=== PATIENT | male | born 1950 | race Caucasian/White ===

== ENCOUNTER 2022-02-23 10:12 | Outpatient (REF) | payer MEDICARE, SELFPAY ==
[2022-02-23 14:13] LABS: MANUAL DIFF FLAG NO
[2022-02-23 14:24] LABS: Basophils Percent Auto 0.6 % (0-2); Eosinophils Percent Auto 0.4 % (0-4); Hematocrit 52.6 % (42.0-52.0); Hemoglobin 17.4 g/dl (14.0-18.0); Imm Gran Abs Auto 0.02 X10*3/uL (0.00-0.03); Imm Gran Pct Auto 0.4 % (0.0-0.4); Lymphocytes Percent Auto 19.2 % (20-40); Mean Corpuscular HGB Conc 33.1 g/dl (31.0-36.0); Mean Corpuscular Hemoglobin 32.8 pg (27.0-33.0); Mean Corpuscular Volume 99.2 fL (80.0-98.0); Mean Platelet Volume 9.7 fL (9.4-12.4); Monocytes Absolute Auto 0.4 X10*3/uL (0.1-1.2); Monocytes Percent Auto 8.7 % (2-11); Neutrophils Absolute Auto 3.5 x10*3/uL (2.0-8.3); Neutrophils Percent Auto 70.7 % (45-73); Platelet Count 199 X10*3/uL (160-400)
[2022-02-23 15:03] LABS: Alanine Aminotransferase 28 U/L (0-40); Albumin Level 4.4 g/dL (3.5-5.0); Alkaline Phosphatase 64 U/L (39-117); Anion Gap 21 (12-20); Aspartate Amino Transferase 30 U/L (5-37); Bilirubin Total 0.6 mg/dL (0.0-1.0); Blood Urea Nitrogen 14 mg/dL (9-16); Calcium 9.3 mg/dL (8.4-10.2); Carbon Dioxide 23 mmol/L (22-29); Chloride 97 mmol/L (96-108); Cholesterol 200 mg/dL; Estimated Glomerular Filt Rate 54; Glucose Fasting 111 mg/dL (60-99); HDL Cholesterol 40 mg/dL; LDL Cholesterol Calculated 131 mg/dl; Potassium 3.9 mmol/L (3.3-5.1); Sodium 137 mmol/L (135-145); Total Protein 7.3 g/dL (6.5-8.0); Triglycerides 146 mg/dL
[2022-02-23 15:24] LABS: Prostate Specific Antigen Scr 1.87 ng/mL (<0.05-4.0); TSH reflex Free T4 2.63 uIU/mL (0.32-4.0)
== END 2022-02-23 10:13 | disposition home or self-care (01) ==
LOC: HO.WFDLDS 10:12
PROVIDERS: Visit Provider Family Medicine
DX: Z01.818 Encounter for other preprocedural examination (principal); Z12.5 Encounter for screening for malignant neoplasm of prostate; J44.9 Chronic obstructive pulmonary disease, unspecified
CPT/HCPCS: 36415; 80053; 80061; 84153; 84443; 85025; 99202

== ENCOUNTER 2022-03-31 10:27 | Outpatient (REF) | payer MEDICARE, SELFPAY ==
[2022-03-31 14:02] LABS: MANUAL DIFF FLAG NO
[2022-03-31 14:24] LABS: Basophils Absolute Auto 0.1 X10*3/uL (0.0-0.2); Basophils Percent Auto 0.7 % (0-2); Eosinophils Absolute Auto 0.2 X10*3/uL (0.0-0.4); Eosinophils Percent Auto 2.3 % (0-4); Hematocrit 47.7 % (42.0-52.0); Imm Gran Abs Auto 0.03 X10*3/uL (0.00-0.03); Imm Gran Pct Auto 0.4 % (0.0-0.4); Lymphocytes Absolute Auto 2.2 X10*3/uL (1.2-4.9); Lymphocytes Percent Auto 30.7 % (20-40); Mean Corpuscular HGB Conc 33.5 g/dl (31.0-36.0); Mean Corpuscular Volume 101.3 fL (80.0-98.0); Mean Platelet Volume 9.9 fL (9.4-12.4); Monocytes Absolute Auto 0.5 X10*3/uL (0.1-1.2); Monocytes Percent Auto 7.1 % (2-11); Neutrophils Absolute Auto 4.1 x10*3/uL (2.0-8.3); Neutrophils Percent Auto 58.8 % (45-73); Platelet Count 247 X10*3/uL (160-400); Red Blood Count 4.71 X10*6/uL (4.60-5.80); Red Cell Distribution Width 13.2 % (11.0-16.0)
[2022-03-31 14:26] LABS: Estimated Average Glucose 103 mg/dL; Hemoglobin A1c % 5.2 %
[2022-03-31 14:39] LABS: Anion Gap 16 (12-20); Blood Urea Nitrogen 12 mg/dL (9-16); Calcium 9.2 mg/dL (8.4-10.2); Carbon Dioxide 28 mmol/L (22-29); Chloride 102 mmol/L (96-108); Estimated Glomerular Filt Rate > 60; Glucose Fasting 105 mg/dL (60-99); Potassium 4.1 mmol/L (3.3-5.1); Sodium 142 mmol/L (135-145)
== END 2022-03-31 10:28 | disposition home or self-care (01) ==
LOC: HO.WFDLDS 10:27
PROVIDERS: Visit Provider Family Medicine
DX: Z00.00 Encounter for general adult medical examination without abnormal findings (principal); R73.01 Impaired fasting glucose
CPT/HCPCS: 36415; 80048; 83036; 85025

== ENCOUNTER 2022-12-01 13:38 | Day surgery (SDC) | payer MEDICARE, SELFPAY ==
[2022-12-01 12:52] VITALS: BMI 34.6
--- NOTE | 2022-12-01 13:49 | HO.ANESPROP2 ---
[facility] Active Problems Active Problems: All Active Problems (Updated 10/03/22 @ 10:01 by Pedro Deluca MD) Overgrown nail (Acute) Elevated LDL cholesterol level (Acute) Elevated fasting glucose (Acute) History of smoking (Acute) COPD (chronic obstructive pulmonary disease) (Acute) Screening for colon cancer (Acute) Screening for prostate cancer (Acute) Adult general medical exam (Acute) Seborrheic keratosis (Acute) Vision changes (Acute) Restless leg syndrome (Acute) Difficulty sleeping (Acute) Laboratory exam ordered as part of routine general medical examination (Acute) Past Medical History Medical History Hernia Surgical History Surgical History History of foot surgery Hx of colonoscopy Hx of hernia repair Hx of prostatectomy Hx of skin graft Social History Social History Housing: Apartment Patient Tobacco Use Status: Former Tobacco user Tobacco use type: Cigarette Cigarette Packs Per Day: 1 e-Cigarette/Vaping Use: Never Used Second Hand Smoke Exposure: No Use of substances other than those prescribed or required for medical reasons: No Are you DNR?: No Advance Directives: No Advance Directives Information Provided: Yes Recently lost weight without trying: No Nutrition Risks: No Nutritional Risk service: No Current occupational status: retired Current occupational exposures/hazards: No Cognitive needs: No Hearing needs: No Vision needs: No Meds Allergies Allergy/AdvReac Type Severity Reaction Status Date / Time No Known Allergies Allergy Verified 10/03/22 09:39 Home Medications Medication Instructions Recorded Confirmed Last Taken Type acetaminophen 500 mg capsule 500 mg PO QID PRN 10/03/22 Unknown History melatonin 10 mg capsule 10 mg PO BEDTIME PRN 10/03/22 Unknown History Exam Exam Date and Time: December 01, 2022 134 Height,Weight and Vital Signs: Height 6 ft Weight 115.666 kg
--- NOTE | 2022-12-01 13:50 | HO.ANESPROP2 ---
HPI - Anesthesia Eval Consult details Narrative: for colonoscopy PMFSH Active Problems Active Problems: All Active Problems (Updated 10/03/22 @ 10:01 by Pedro Deluca MD) Overgrown nail (Acute) Elevated LDL cholesterol level (Acute) Elevated fasting glucose (Acute) History of smoking (Acute) COPD (chronic obstructive pulmonary disease) (Acute) Screening for colon cancer (Acute) Screening for prostate cancer (Acute) Adult general medical exam (Acute) Seborrheic keratosis (Acute) Vision changes (Acute) Restless leg syndrome (Acute) Difficulty sleeping (Acute) Laboratory exam ordered as part of routine general medical examination (Acute) Past Medical History Medical History Hernia Family History Family history of problems with anesthesia: No Surgical History Surgical History History of foot surgery Hx of colonoscopy Hx of hernia repair Hx of prostatectomy Hx of skin graft History of Problems with Anesthesia: No Social History Social History Housing: Apartment Patient Tobacco Use Status: Former Tobacco user Tobacco use type: Cigarette Cigarette Packs Per Day: 1 e-Cigarette/Vaping Use: Never Used Second Hand Smoke Exposure: No Use of substances other than those prescribed or required for medical reasons: No Are you DNR?: No Advance Directives: No Advance Directives Information Provided: Yes Recently lost weight without trying: No Nutrition Risks: No Nutritional Risk service: No Current occupational status: retired Current occupational exposures/hazards: No Cognitive needs: No Hearing needs: No Vision needs: No Meds Allergies Allergy/AdvReac Type Severity Reaction Status Date / Time No Known Allergies Allergy Verified 10/03/22 09:39 Home Medications Medication Instructions Recorded Confirmed Last Taken Type acetaminophen 500 mg capsule 500 mg PO QID PRN 10/03/22 Unknown History melatonin 10 mg capsule 10 mg PO BEDTIME PRN 10/03/22 Unknown History Exam Exam Date and Time: December 01, 2022 1350 Height,Weight and Vital Signs: Height 6 ft Weight 115.666 kg Airway Mallampati Class: II TM Dist: >3cm Neck ROM: Full Heart: rrr Lungs: cta Assessment and Plan Assessment Anesthesia Assessment: Anesthesia Plan Discussed and Chart Reviewed Final Anesthetic Review Family History of Problems with Anesthesia: No History of Problems with Anesthesia: No ASA Class: III Final Preanesthetic Review: No Changes in Pt Med Stat, Meds/Allgs Chart Reviewed, Consent Obtained/Reviewed and Anes Risks/Benef Reviewed Patient Risk: Low Procedure Risk: Low Anesthetic Plan Anesthetic Plan: MAC: Disposition: Standard PACU
[2022-12-01 13:53] VITALS: BP 147/89; PULSE 96; RESP 18; TEMP 36.1; O2SAT 94
--- NOTE | 2022-12-01 13:55 | MHC.SHP ---
Pre-Procedural Eval Section A Date of Service: 12/01/22 Section B Chief Complaint: screening Relevant Family History (Specify if Yes): No Relevant Social History: None Present Medications: see Short Stay Collaborative assessment Medical History: Significant History (hernia) History of Previous Operations: Relevant previous surgery/procedure and date(s) (History of foot surgery Hx of colonoscopy Hx of hernia repair Hx of prostatectomy Hx of skin graft) Allergies: Allergies Allergy/AdvReac Type Severity Reaction Status Date / Time No Known Allergies Allergy Verified 10/03/22 09:39 Review of Systems Sugical H&P ROS: Negative: Constitution, Cardiovascular, Respiratory, Neurological, Psychiatric, Hem-Onc, Allergic/Immunologic, Gastrointestinal, Genitourinary, Musculoskeletal, Integumentary, Endocrine and Eyes/Ears/Nose/Throat Exam Surgical H&P Exam: Normal: HEENT, Normal: Heart, Normal: Lungs, Normal: Extremities, Normal: Abdomen, Normal: Skin and Normal: Neurological Plan Diagnosis/Plan: Unchanged I have reviewed the history and physical and performed a pertinent physical examination on my patient. No changes have occurred unless specified. Time Spent With Patient Time: Total time managing care of this patient today ____ minutes.
--- NOTE | 2022-12-01 14:32 | W.PM.OPN ---
Operative Note Operative Note Date of Service: 12/01/22 Narrative: Operative Information Procedure Description: Colonoscopy Indication: screening Anesthesia: MAC COLONOSCOPY Instrument: Olympus variable stiffness pediatric scope 190L Colonoscopy Monitoring: Vital signs and clinical assessment, continuous EKG monitoring, Pulse oximetry, Carbon Dioxide monitoring and blood pressure monitoring were done throughout the procedure. Colon withdrawal time was 10 minutes. Procedure: The patient was placed in the left lateral decubitis position and pre-procedure medications were administered. After a digital rectal examination of the ano-rectum, the video colonoscope was inserted into the rectum and advanced through the colon to the cecum/TI. The colonoscope was slowly withdrawn in a retrograde panoramic fashion and the colon mucosa was carefully examined including a retroflexed view of the rectum. Findings and interventions are described below. Procedure Difficulty: easy Findings: Terminal Ileum-normal Cecum: 4-5 mm sessile polyp removed with cold forceps Ascending Colon: normal Transverse Colon -normal Descending Colon:normal Sigmoid Colon: mild diverticulosis Rectum: Retroflexion with small internal hemorrhoids, grade I, 8-10 mm sessile polyp removed with cold snare Anorectum - normal Colon preparation: [place] Bowel Preparation Scale Right colon; 2 Transverse colon: 3 Left colon; 3 (0 = Unprepared colon segment with mucosa not seen due to solid stool that cannot be cleared. 1 = Portion of mucosa of the colon segment seen, but other areas of the colon segment not well seen due to staining, residual stool and/or opaque liquid. 2 = Minor amount of residual staining, small fragments of stool and/or opaque liquid, but mucosa of colon segment seen well. 3 = Entire mucosa of colon segment seen well with no residual staining, small fragments of stool or opaque liquid) Impression and Post Procedure Diagnosis: polyps internal hemorrhoids diverticular disease Plan: High fiber diet leaflet Avoid straining at stool, epsom salts and sitz bath, anusol supps or cream Repeat Colonoscopy in 5 years if adenomatous. 10 yrs if benign or earlier if clinically indicated Above findings were reviewed with the patient and relevant handouts were provided if indicated.
[2022-12-01 14:36] VITALS: BP 116/68; PULSE 61; RESP 16; TEMP 36.4; O2SAT 98
[2022-12-01 14:51] VITALS: BP 114/68; PULSE 63; RESP 16; O2SAT 96
[2022-12-01 15:06] VITALS: BP 129/82; PULSE 61; RESP 16; TEMP 36.1; O2SAT 97
== END 2022-12-01 15:39 | disposition home or self-care (01) ==
PROVIDERS: PCP Family Medicine; Visit Provider Internal Medicine Gastroenterology
PROC: 0DJD8ZZ Inspection of Lower Intestinal Tract, Via Natural or Artificial Opening Endoscopic (ICD-10-PCS; CPT 45378; principal; 2022-12-01 14:20)
DX: Z12.11 Encounter for screening for malignant neoplasm of colon (principal); D12.0 Benign neoplasm of cecum; K62.1 Rectal polyp; K57.30 Diverticulosis of large intestine without perforation or abscess without bleeding; K64.0 First degree hemorrhoids; J44.9 Chronic obstructive pulmonary disease, unspecified
CPT/HCPCS: 45385; 45380; 88305

== ENCOUNTER → 2022-12-20 10:59 | Outpatient (BNVA) | payer MEDICARE, SELFPAY | PROVIDERS: PCP Family Medicine; Visit Provider Physician Assistant | DX: Z00.00 Encounter for general adult medical examination without abnormal findings (principal); R73.01 Impaired fasting glucose; I10 Essential (primary) hypertension; Z13.220 Encounter for screening for lipoid disorders; K57.30 Diverticulosis of large intestine without perforation or abscess without bleeding; K64.9 Unspecified hemorrhoids; D12.6 Benign neoplasm of colon, unspecified | CPT/HCPCS: 99212 ==

== ENCOUNTER → 2022-12-20 10:59 | Outpatient (AMB) | payer MEDICARE, SELFPAY ==
--- NOTE | 2022-12-20 10:59 | MHC.OFFVIS ---
Intake Vital Signs 12/20/22 11:02 Height 5 ft 9 in Weight 252 lb BMI 37.2 BP 116/72 Blood Pressure Location Lt brachial Position Sitting Pulse 74 Intake Visit Reasons: S/p Warriors Mark; Qiu Intake Note: Patient follow up for Colonoscopy results. Patient denies any GI issues. Data Operations Leader Required: No Accompanied by: Self / Same As Patient Allergies No Known Allergies Allergy (Verified 12/20/22 11:00) Medication List - Last Reconciled 12/20/22 by Lindsay Bose PA-C acetaminophen 500 mg PO QID PRN gabapentin 300 mg PO BEDTIME 30 days melatonin 10 mg PO BEDTIME PRN HPI HPI Comments History of Present Illness Details A 72 y/o male f/u after colonoscopy- for result- he tolerated well reviewed procedure report and pathology He is currently fasting for blood work- says hes pre diabetic- feels well [facility] Medical History (Updated 12/20/22 @ 11:02 by Lindsay Boes PA-C) Hernia Surgical History History of foot surgery Hx of colonoscopy Hx of hernia repair Hx of prostatectomy Hx of skin graft Social History Housing: Apartment Patient Tobacco Use Status: Former Tobacco user Tobacco use type: Cigarette Cigarette Packs Per Day: 1 e-Cigarette/Vaping Use: Never Used Second Hand Smoke Exposure: No service: No Current occupational status: retired Current occupational exposures/hazards: No Cognitive needs: No Hearing needs: No Vision needs: No Review of Systems Const All systems reviewed & are unremarkable except as noted in HPI and below Card Denies chest pain and Denies dyspnea Resp Denies dyspnea GI Reports abdominal pain Physical Exam Const General: cooperative, healthy appearing and comfortable Orientation/consciousness: patient oriented x3 Limitations: no limitations Eyes Sclerae: sclerae normal Resp Effort & Inspection: normal respiratory effort and able to speak in complete sentences Skin General skin exam: no rashes or lesions noted Neuro General: patient oriented x3 Extrem General: Yes full ROM Psych Appearance: grossly normal Mental Status: mental status grossly normal Speech and movement: Normal speech and movement present Affect: normal affect Attitude: cooperative Thought process: Normal thought process present Thought content: Normal thought content present Insight: Good insight present (Psych) Judgement: Good judgement present (Psych) Results Reviewed Results Reviewed: Impression and Post Procedure Diagnosis: polyps internal hemorrhoids diverticular disease Plan: High fiber diet leaflet Avoid straining at stool, epsom salts and sitz bath, anusol supps or cream Repeat Colonoscopy in 5 years if adenomatous. 10 yrs if benign or earlier if clinically indicated Name:?Ulises Carrion Age/Sex: 72/M Attending: Alf Qiu MD : 1950 Submitted by: Alf Qiu MD Copies to: Pedro Deluca MD MR #: [id number] ? Status: [facility] [place] Collected: 12/01/22 Location: [facility] Received: 12/02/22 Diagnosis A.? Colon, cecal polyp:? Tubular adenoma, completely excised; negative for high-grade dysplasia and carcinoma.? B.? Colon, rectal polyp:? Hyperplastic polyp. Clinical History Pre-Op Dx:? Screening Post-Op Dx: Colon polyps, hemorrhoids, diverticulosis Reviewed previous labs- Assessment & Plan Assessment & Plan (1) Tubular adenoma of colon: Code(s): D12.6 - Benign neoplasm of colon, unspecified Plan: 5 year - polyp surveillance (2) Diverticulosis of colon: Code(s): K57.30 - Diverticulosis of large intestine without perforation or abscess without bleeding Plan: High fiber diet ER protocol (3) Hemorrhoids: Code(s): K64.9 - Unspecified hemorrhoids Plan: High fiber diet Avoid straining at stool, epsom salts and sitz bath, anusol supps or cream Medications: New methylcellulose (laxative) (Citrucel Sugar Free oral powder) 2 grams PO DAILY PRN 479 grams 5RF constipation Patient Instructions: Pleasant 72 y/o male- alert- good spirits High fiber diet literature given Avoid straining at stool, epsom salts and sitz bath, anusol supps or cream Repeat Colonoscopy in 5 years due to adenomatous polyp Diverticulosis/ diverticulitis ER protocol Call with questions or concerns Coding Level of Care Code Est Pt Level 3 (23001) Diagnoses Tubular adenoma of colon D12.6 Diverticulosis of colon K57.30 Hemorrhoids K64.9 Time Spent (min) 35
[2022-12-20 11:02] VITALS: BP 116/72; PULSE 74; BMI 37.2
== END ==
PROVIDERS: PCP Family Medicine; Visit Provider Physician Assistant
DX: D12.6 Benign neoplasm of colon, unspecified (principal); K57.30 Diverticulosis of large intestine without perforation or abscess without bleeding; K64.9 Unspecified hemorrhoids
CPT/HCPCS: 99213

== ENCOUNTER 2022-12-20 11:34 | Outpatient (REF) | payer MEDICARE, SELFPAY ==
[2022-12-20 14:21] LABS: MANUAL DIFF FLAG NO
[2022-12-20 14:40] LABS: Basophils Absolute Auto 0.1 X10*3/uL (0.0-0.2); Basophils Percent Auto 0.9 % (0-2); Eosinophils Absolute Auto 0.2 X10*3/uL (0.0-0.4); Eosinophils Percent Auto 2.3 % (0-4); Hematocrit 49.4 % (42.0-52.0); Hemoglobin 16.4 g/dl (14.0-18.0); Imm Gran Abs Auto 0.02 X10*3/uL (0.00-0.03); Imm Gran Pct Auto 0.3 % (0.0-0.4); Lymphocytes Percent Auto 29.5 % (20-40); Mean Corpuscular HGB Conc 33.2 g/dl (31.0-36.0); Mean Corpuscular Hemoglobin 32.7 pg (27.0-33.0); Mean Corpuscular Volume 98.6 fL (80.0-98.0); Mean Platelet Volume 10.7 fL (9.4-12.4); Monocytes Absolute Auto 0.5 X10*3/uL (0.1-1.2); Monocytes Percent Auto 6.9 % (2-11); Neutrophils Absolute Auto 4.1 x10*3/uL (2.0-8.3); Neutrophils Percent Auto 60.1 % (45-73); Platelet Count 228 X10*3/uL (160-400); Red Blood Count 5.01 X10*6/uL (4.60-5.80); Red Cell Distribution Width 12.9 % (11.0-16.0); White Blood Count 6.8 X10*3/uL (4.8-10.8)
[2022-12-20 14:49] LABS: Estimated Average Glucose 97 mg/dL
[2022-12-20 17:26] LABS: Creatinine Urine 258.96 mg/dL; Microalbum/Creatinine Ratio Ur 7.3 ug/mg cr
[2022-12-20 19:27] LABS: Alanine Aminotransferase 24 U/L (0-40); Albumin Level 4.2 g/dL (3.5-5.0); Alkaline Phosphatase 60 U/L (39-117); Anion Gap 14 (12-20); Aspartate Amino Transferase 23 U/L (5-37); Blood Urea Nitrogen 14 mg/dL (9-16); Calcium 9.4 mg/dL (8.4-10.2); Carbon Dioxide 23 mmol/L (22-29); Chloride 106 mmol/L (96-108); Cholesterol 186 mg/dL; Estimated Glomerular Filt Rate > 60; Glucose Random 90 mg/dL (60-115); HDL Cholesterol 45 mg/dL; LDL Cholesterol Calculated 122 mg/dl; Potassium 4.4 mmol/L (3.3-5.1); Sodium 139 mmol/L (135-145); Total Protein 7.2 g/dL (6.5-8.0); Triglycerides 95 mg/dL
== END 2022-12-20 11:35 | disposition home or self-care (01) ==
LOC: HO.WFDLDS 11:34
PROVIDERS: Visit Provider Family Medicine
DX: Z00.00 Encounter for general adult medical examination without abnormal findings (principal); I10 Essential (primary) hypertension; R73.01 Impaired fasting glucose; D12.6 Benign neoplasm of colon, unspecified; K57.30 Diverticulosis of large intestine without perforation or abscess without bleeding; K64.9 Unspecified hemorrhoids
CPT/HCPCS: 36415; 80053; 80061; 82043; 83036; 85025

== ENCOUNTER 2023-01-04 08:43 | Outpatient (AMB) | payer MEDICARE, SELFPAY ==
--- NOTE | 2023-01-04 08:48 | MHC.PC.OV ---
Vital Signs 01/04/23 08:49 Height 5 ft 9 in Weight 247 lb 2 oz BMI 36.5 BP 120/70 Blood Pressure Location Lt brachial Position Sitting Pulse 59 Pulse Source Pulse Oximeter Pulse Oximetry (%) 95 Oxygen Delivery Method Room Air Intake Visit Reasons: f/u elevated fasting glucose Intake Note: Patient is here to follow up on elevated fasting blood glucose. Allergies No Known Allergies Allergy (Verified 01/04/23 08:51) Medication List - Last Reconciled 01/04/23 by Pedro Deluca MD acetaminophen 500 mg PO QID PRN gabapentin 300 mg PO BEDTIME 30 days melatonin 10 mg PO BEDTIME PRN methylcellulose (laxative) (Citrucel Sugar Free oral powder) 2 grams PO DAILY PRN Tobacco use date assessed: 01/04/23 Fall risk assessment: No Falls in past year Last assessed Fall Risk: 01/04/23 Dental Screening Dental Screen Date: 01/04/23 Did you have a dental visit in the last 12 months?: No Did you have a dental problem in the last 6 months where you did not have access to dental care?: No Was dental information given to patient?: No HPI f/u elevated fasting glucose HPI Details 72 y/o male presents to f/u elevated fasting glucose and lipids. Last A1c 10/03/22 is 5.6%. A1c today 01/04/23 is 5.3%. Labs were drawn 12/20/22. Reviewed labs with pt. Triglycerides 95. TC 186. LDL 122. HDL 45. LDL had been mildly elevated before. [facility] Medical History Hernia Surgical History History of foot surgery Hx of colonoscopy Hx of hernia repair Hx of prostatectomy Hx of skin graft Social History Housing: Apartment Patient Tobacco Use Status: Former Tobacco user Tobacco use type: Cigarette Cigarette Packs Per Day: 1 e-Cigarette/Vaping Use: Never Used Second Hand Smoke Exposure: No service: No Current occupational status: retired Current occupational exposures/hazards: No Cognitive needs: No Hearing needs: No Vision needs: No Questionnaire PAVAN-7 AMB Questionnaire PAVAN-7 Date PAVAN - 7 assessed: 02/02/22 Source: Developed by Drs. Ulises Pennington, Birdie Becerra, Saleem Seals and colleagues, with an educational alexandro from [employer]. Review of Systems Const Denies chills, Denies fatigue, Denies fever(s), Denies headache(s) and Denies weakness ENT Denies dizziness and Denies headache(s) Card Denies dyspnea Resp Denies cough, Denies dyspnea, Denies wheezing and Denies other (shortness of breath) Musc Denies numbness and Denies tingling Neuro Denies dizziness, Denies headache(s), Denies numbness, Denies tingling and Denies weakness Psych Denies anxiety and Denies depression Endo Denies fatigue Aller/Immun Denies wheezing Physical exam (Primary Care) Vital Signs: Last Vital Signs Pulse 59 01/04/23 08:49 BP 120/70 01/04/23 08:49 Pulse Ox 95 01/04/23 08:49 Oxygen Delivery Method Room Air 01/04/23 08:49 BMI result Body Mass Index 36.5 Tobacco/Smoking Status: Tobacco use Status Tobacco use date assessed 01/04/23 01/04/23 08:57 Patient Tobacco Use Status Former Tobacco user 01/04/23 08:57 Tobacco use type Cigarette 01/04/23 08:57 e-Cigarette/Vaping Use Never Used 01/04/23 08:57 Const General: well developed; No acute distress Nutritional Appearance: well nourished Orientation/consciousness: patient oriented x3 HENMT Head: Yes normocephalic and Yes atraumatic Eyes General: appearance normal, both eyes and all related structures Pupils: Equal, round and reactive pupils present EOM: EOMs intact bilaterally Resp Effort & Inspection: normal respiratory effort Auscultation: clear to auscultation bilaterally Cardio Rate: regular rate Rhythm: regular rhythm Heart sounds: S1 normal heart sound present, S2 normal heart sound present, no gallops, no murmurs and no rubs Neuro General: patient oriented x3 and gait normal Cranial nerves: Yes Equal, round and reactive pupils present Psych Affect: normal affect Results AMB Hemoglobin A1c AMB Hemoglobin A1c 5.3 % Last Edit by Varsha Blanco CMA on 01/04/23 09:18 Results Reviewed Results Reviewed: Laboratory Last Values Hgb A1c (Clinic) 5.3 % (4.0-6.0) 01/04/23 09:17 Assessment and Plan Assessment & Plan (1) Elevated fasting glucose: Code(s): R73.01 - Impaired fasting glucose Plan: Elevated fasting blood sugars and his A1c had been at 5.6%; top-normal. He has been working on this a little and has brought it down to 5.3% Encouraged him to keep working at this. We discussed a diet lower in sugars and starches and also specifically discussed decreasing fruit juice intake Also advised exercise and weight loss (2) Elevated LDL cholesterol level: Code(s): E78.00 - Pure hypercholesterolemia, unspecified Plan: LDL cholesterol was slightly elevated at 131. Had buys lifestyle changes and he has brought this down to 122 Lipid levels all within normal limits now Encouraged ongoing lifestyle changes (3) Screening for colon cancer: Code(s): Z12.11 - Encounter for screening for malignant neoplasm of colon Plan: Recent colonoscopy was positive for diverticulosis and polyps As follow-up recommended in 5 years (4) Difficulty sleeping: Code(s): G47.9 - Sleep disorder, unspecified Plan: He has used an OTC melatonin combination medication that had another substance in it. He says he has not been able to find that anymore. Recommended he try melatonin a by itself and keep the doses low as possible. Also recommended holidays from this medication. He notes the combo medication was helping with restless legs as well. Had gabapentin on his med list but is using that anymore. If he is still having trouble he will let me know we can try gabapentin again. Orders: Orders Prostate Specific Antigen Scr Today Z12.5 - Encounter for screening for malignant neoplasm of prostate Complete Blood Count Auto Diff Today Z00.00 - Encounter for general adult medical examination without abnormal findings Comprehensive [place]. Panel Fast Today Z00.00 - Encounter for general adult medical examination without abnormal findings TSH reflex Free T4 Today Z00.00 - Encounter for general adult medical examination without abnormal findings UA and rflx microscopic Today Z00.00 - Encounter for general adult medical examination without abnormal findings Microalbumin, Random (w Creat) Today I10 - Essential (primary) hypertension AMB Hemoglobin A1c Today Z13.9 - Encounter for screening, unspecified Medications: Discontinued gabapentin Discontinued Reason: Patient no longer taking 300 mg PO BEDTIME 30 caps 2RF 30 days Coding Level of Care Code Est Pt Level 4 (98247) Diagnoses Elevated fasting glucose R73.01 Elevated LDL cholesterol level E78.00 Screening for colon cancer Z12.11 Difficulty sleeping G47.9
[2023-01-04 08:49] VITALS: BP 120/70; PULSE 59; O2SAT 95; BMI 36.5
== END 2023-01-04 09:43 | disposition home or self-care (01) ==
PROVIDERS: Visit Provider Family Medicine
DX: R73.01 Impaired fasting glucose (principal); E78.00 Pure hypercholesterolemia, unspecified; Z12.11 Encounter for screening for malignant neoplasm of colon; G47.9 Sleep disorder, unspecified
CPT/HCPCS: 83036; 99214

== ENCOUNTER 2023-04-05 11:31 | Outpatient (AMB) | payer MEDICARE, SELFPAY ==
[2023-04-05 11:50] VITALS: BP 120/68; PULSE 67; O2SAT 96; BMI 35.9
--- NOTE | 2023-04-05 11:50 | A.OFFPC_ITS ---
Vital Signs 04/05/23 11:50 Height 5 ft 9 in Weight 243 lb BMI 35.9 BP 120/68 Blood Pressure Location Lt brachial Position Sitting Pulse 67 Pulse Source Pulse Oximeter Pulse Oximetry (%) 96 Oxygen Delivery Method Room Air Intake Visit Reasons: CPE with f/u labs and health maintenance Intake Note: Patient is here for his physical today. Allergies No Known Allergies Allergy (Verified 04/05/23 11:52) Tobacco use date assessed: 01/04/23 HPI CPE with f/u labs and health maintenance HPI Details 72 y/o male presents for a CPE with f/u labs and health maintenance. No recent CPE-labs to review. Hx of elevated fasting glucose and A1c today 5.4%. Pt reports difficulty sleeping. Pt also reports ear discomfort whenever he wakes up. HPI Comments History of Present Illness Details Documentation assistance for Pedro Deluca MD, was provided by Jarad Tripathi,?[employer] on 04/05/2023 1:02 PM EST. I, Dr. Deluca, have read, observed, and verified documentation.? PFSH Medical History Hernia Surgical History History of foot surgery Hx of colonoscopy Hx of hernia repair Hx of prostatectomy Hx of skin graft Social History Housing: Apartment Patient Tobacco Use Status: Former Tobacco user Tobacco use type: Cigarette Cigarette Packs Per Day: 1 e-Cigarette/Vaping Use: Never Used Second Hand Smoke Exposure: No service: No Current occupational status: retired Current occupational exposures/hazards: No Cognitive needs: No Hearing needs: No Vision needs: No Questionnaire PAVAN-7 AMB Questionnaire PAVAN-7 Date PAVAN - 7 assessed: 02/02/22 Source: Developed by Drs. Ulises Pennington, Birdie Becerra, Saleem Seals and colleagues, with an educational alexandro from [employer]. Review of Systems Const Denies chills, Denies fatigue, Denies fever(s), Denies headache(s) and Denies weakness Eyes Denies change in vision ENT Denies dizziness, Denies headache(s), Denies hearing loss, Denies nasal congestion, Denies sinus pain, Denies sinus pressure and Denies sore throat Card Denies chest pain, Denies lightheadedness, Denies dyspnea and Denies other (palpitations) Resp Denies cough, Denies dyspnea and Denies wheezing GI Denies abdominal pain, Denies melena, Denies hematochezia, Denies change in bowel habits, Denies dyspepsia and Denies nausea Denies hematuria and Denies dysuria Musc Denies abnormal gait, Denies myalgias, Denies arthralgias, Denies numbness and Denies tingling Skin/Breast Denies rash, Denies unusual bruising and Denies wounds Neuro Denies abnormal gait, Denies dizziness, Denies headache(s), Denies memory loss, Denies numbness, Denies Sensory deficit (Neuro), Denies tingling and Denies weakness Psych Denies anxiety, Denies depression and Denies memory loss Endo Denies cold intolerance, Denies fatigue, Denies heat intolerance, Denies polydipsia and Denies polyuria Bhavesh/Lymph Denies easy bleeding and Denies easy bruising Aller/Immun Denies wheezing Physical exam (Primary Care) Vital Signs: Last Vital Signs Pulse 67 04/05/23 11:50 BP 120/68 04/05/23 11:50 Pulse Ox 96 04/05/23 11:50 Oxygen Delivery Method Room Air 04/05/23 11:50 BMI result Body Mass Index 35.9 Tobacco/Smoking Status: Tobacco use Status Tobacco use date assessed 01/04/23 04/05/23 11:52 Patient Tobacco Use Status Former Tobacco user 04/05/23 11:52 Tobacco use type Cigarette 04/05/23 11:52 e-Cigarette/Vaping Use Never Used 04/05/23 11:52 Const General: no acute distress, well developed, alert and awake Nutritional Appearance: well nourished and obese Orientation/consciousness: patient oriented x3 HENMT Head: Yes normocephalic and Yes atraumatic Ears: hearing grossly normal bilaterally and TM's normal bilaterally General nose exam: Normal external nose present and Normal nares present Mouth: Normal oral and palatal mucosa present and moist mucous membranes Teeth and gingiva: dentition normal Throat: Yes posterior oropharynx normal Eyes General: appearance normal, both eyes and all related structures Pupils: Equal, round and reactive pupils present and Pupil accommodation reflex normal EOM: EOMs intact bilaterally Neck Neck: Yes normal visual inspection, Yes no lymphadenopathy and Yes trachea midline Thyroid: Thyroid normal Carotids: no bruits Lymphatic: no lymphadenopathy noted Chest Chest palpation & inspection: normal inspection of the chest Resp Effort & Inspection: normal respiratory effort Auscultation: clear to auscultation bilaterally Cardio Rate: regular rate Rhythm: regular rhythm Heart sounds: S1 normal heart sound present, S2 normal heart sound present, no gallops, no murmurs and no rubs Bruits: no abdominal aortic bruits and no carotid bruits GI Palpation (GI): No Abdominal aortic bruit present, Soft to palpation, nontender, No hepatosplenomegaly present and No Rebound tenderness present Auscultation: normal bowel sounds General: Yes no CVA tenderness Back/Spine/Pelvis Back: no CVA tenderness Cervical Spine: cervical ROM normal and No Cervical spine tenderness Thoracic/Lumbar Spine: thoraco-lumbar ROM normal, No pain with thoraco-lumbar ROM, No thoracic spinal tenderness and No lumbar spinal tenderness Skin Lesions: no lesions Rashes: no rashes Trauma: no lacerations or abrasions Wounds: no wounds Nails: normal Neuro General: patient oriented x3 Cranial nerves: Yes Equal, round and reactive pupils present Cognition (Neuro): normal cognition Gait exam (Neuro): Normal gait present Motor exam (neuro): 5/5 motor strength present throughout Sensory Exam: No Sensory deficit (Neuro) Deep tendon reflexes (DTR's): Right patellar reflex intensity grade: 2+ and Left patellar reflex intensity grade: 2+ Extrem General: Yes normal to inspection and No edema Psych Appearance: grossly normal Affect: normal affect Attitude: cooperative Thought process: Normal thought process present Results AMB Hemoglobin A1c AMB Hemoglobin A1c 5.4 % Last Edit by Varsha Blanco CMA on 04/05/23 12:07 Results Reviewed Results Reviewed: Laboratory Last Values Hgb A1c (Clinic) 5.4 % (4.0-6.0) 04/05/23 12:04 Assessment and Plan Assessment & Plan (1) Adult general medical exam: Code(s): Z00.00 - Encounter for general adult medical examination without abnormal findings Plan: 72-year-old?male?presents?for?complete?physical?exam Encouraged?healthy?diet?with?active?lifestyle?and?plenty?of?exercise (2) Elevated fasting glucose: Code(s): R73.01 - Impaired fasting glucose Plan: A1c?increased?slightly?from?5.3%?5.4%. Encouraged?diet?lower?in?sugars?and?starches Encouraged?exercise (3) Screening for prostate cancer: Code(s): Z12.5 - Encounter for screening for malignant neoplasm of prostate Plan: PSA?level?is?ordered?and?patient?will?get?this?drawn We?can?review?this?by?telemedicine (4) Ear discomfort: Code(s): H92.09 - Otalgia, unspecified ear Plan: TMs?look?normal?today. Description?consistent?with?some?Eustachian?tube?dysfunction Advised?Valsalva?maneuver?of?the?ear (5) Difficulty sleeping: Code(s): G47.9 - Sleep disorder, unspecified Plan: Will?follow (6) Screening for colon cancer: Code(s): Z12.11 - Encounter for screening for malignant neoplasm of colon Plan: Will?discuss?at?upcoming?visit Orders: Orders AMB Hemoglobin A1c Today Z13.9 - Encounter for screening, unspecified Coding Level of Care Code Est Pt Level 3 (69073) Est Pt Prev Care >65y(89921) Diagnoses Adult general medical exam Z00.00 Elevated fasting glucose R73.01 Screening for prostate cancer Z12.5 Ear discomfort H92.09 Difficulty sleeping G47.9 Screening for colon cancer Z12.11
== END 2023-04-05 13:09 | disposition home or self-care (01) ==
PROVIDERS: PCP Family Medicine; Visit Provider Family Medicine
DX: Z00.00 Encounter for general adult medical examination without abnormal findings (principal); R73.01 Impaired fasting glucose; H92.03 Otalgia, bilateral; G47.9 Sleep disorder, unspecified
CPT/HCPCS: 83036; 99397

== ENCOUNTER 2024-04-09 08:48 | Outpatient (AMB) | payer MEDICARE, SELFPAY ==
--- NOTE | 2024-04-09 09:19 | MHC.PC.OV ---
Vital Signs 04/09/24 09:28 Height 6 ft Weight 239 lb 4 oz BMI 32.4 BP 100/60 Blood Pressure Location Rt brachial Position Sitting Respiration 12 Pulse 56 Pulse Source Pulse Oximeter Temp 97.8 F Temp Source Oral Pulse Oximetry (%) 97 Oxygen Delivery Method Room Air Intake Visit Reasons: Annual Physical Intake Note: annual Allergies No Known Allergies Allergy (Verified 04/09/24 09:21) Tobacco use date assessed: 04/09/24 Fall risk assessment: No Falls in past year Last assessed Fall Risk: 04/09/24 Dental Screening Dental Screen Date: 04/09/24 Did you have a dental visit in the last 12 months?: No Did you have a dental problem in the last 6 months where you did not have access to dental care?: No Was dental information given to patient?: Patient has dentist HPI Annual Physical HPI Details 73 y/o male presents for an extended exam with f/u labs and health maintenance. No recent labs to review. Notes some hearing changes. Has complaints of knee pain. [facility], [facility] Medical History Hernia Surgical History History of foot surgery Hx of skin graft Hx of prostatectomy Hx of colonoscopy Hx of hernia repair Social History Housing: Apartment Patient Tobacco Use Status: Former Tobacco user Tobacco use type: Cigarette Cigarette Packs Per Day: 1 e-Cigarette/Vaping Use: Never Used Second Hand Smoke Exposure: No service: No Current occupational status: retired Current occupational exposures/hazards: No Cognitive needs: No Hearing needs: No Vision needs: No Questionnaire PHQ-9 Over the last 2 weeks, how often have you been bothered by any of the following problems? 1. Little interest or pleasure in doing things: not at all 2. Feeling down, depressed, or hopeless: not at all 3. Trouble falling or staying asleep, or sleeping too much: nearly every day 4. Feeling tired or having little energy: not at all 5. Poor appetite or overeating: not at all 6. Feeling bad about yourself - or that you are a failure or have let yourself or your family down: more than half the days 7. Trouble concentrating on things, such as reading the newspaper or watching television: not at all 8. Moving or speaking so slowly that other people could have noticed. Or the opposite - being so fidgety or restless that you have been moving around a lot more than usual: not at all 9. Thoughts that you would be better off or of hurting yourself in some way: not at all Total score: 5 Depression Screening Interpretation: Positive Depression Screening Done: Yes 66698 - PHQ-9 Billing: Yes Source: Developed by Drs. Ulises Pennington, Birdie Becerra, Saleem Seals and colleagues, with an educational alexandro from [employer]. Thrive Questionnaire Date Thrive assessed: 04/09/24 I am a: Patient What is your living situation today?: I have a steady place to live Within the past 12 months, did the food you bought not last and you didn't have the money to get more?: Never true Within the past 12 months, did you worry whether your food would run out before you got money to buy more?: Never true Do you have trouble paying for medicines?: No Do you have trouble getting transportation to medical appointments?: No Do you have trouble paying your heating and electricity bill?: No Do you have trouble taking care of your child, family member or friend?: No Do you have trouble with day-to-day activities such as bathing, preparing meals, shopping, managing finances, etc.?: No Are you currently unemployed and looking for a job?: No Are you interested in more education?: No Please select the resources that you would like help with: None Currently or been in a relationship where the following occur: No concerns reported THRIVE Score: 0 AUDIT C Alcohol Use Questionnaire (AUDIT-C) 1. How often do you have a drink containing alcohol?: Never 3. How often do you have six or more drinks on one occasion?: Never Total Score: 0 PAVAN-7 AMB Questionnaire PAVAN-7 Date PAVAN - 7 assessed: 04/09/24 Feeling nervous, anxious, or on edge: 0 = Not at all Not being able to stop or control worryin = Not at all Worrying too much about different things: 0 = Not at all Trouble relaxin = Not at all Being so restless that it is hard to sit still: 0 = Not at all Becoming easily annoyed or irritable: 0 = Not at all Feeling afraid as if something awful might happen: 0 = Not at all Total PAVAN-7 score (0-4 normal; 5-9 mild; 10-14 moderate; 15-21 severe): 0 Source: Developed by Drs. lUises Pennington, Birdie Becerra, Saleem Seals and colleagues, with an educational alexandro from [employer]. PAVAN-7 Assessment Billing PAVAN-7 Assessment Tool: PAVAN-7 Assessment 41335 Review of Systems Const Denies chills, Denies fatigue, Denies fever(s), Denies headache(s) and Denies weakness Eyes Denies change in vision ENT Denies dizziness, Denies headache(s), Denies hearing loss, Denies nasal congestion, Denies sinus pain, Denies sinus pressure and Denies sore throat Card Denies chest pain, Denies lightheadedness, Denies dyspnea and Denies other (palpitations) Resp Denies cough, Denies dyspnea and Denies wheezing GI Denies abdominal pain, Denies melena, Denies hematochezia, Denies change in bowel habits, Denies dyspepsia and Denies nausea Denies hematuria and Denies dysuria Musc Denies abnormal gait, Denies myalgias, Denies arthralgias, Denies numbness and Denies tingling Skin/Breast Denies rash, Denies unusual bruising and Denies wounds Neuro Denies abnormal gait, Denies dizziness, Denies headache(s), Denies memory loss, Denies numbness, Denies Sensory deficit (Neuro), Denies tingling and Denies weakness Psych Denies anxiety, Denies depression and Denies memory loss Endo Denies cold intolerance, Denies fatigue, Denies heat intolerance, Denies polydipsia and Denies polyuria Bhavesh/Lymph Denies easy bleeding and Denies easy bruising Aller/Immun Denies wheezing Physical exam (Primary Care) Vital Signs: Last Vital Signs Temp 97.8 F 04/09/24 09:28 Pulse 56 04/09/24 09:28 Resp 12 04/09/24 09:28 BP 100/60 04/09/24 09:28 Pulse Ox 97 04/09/24 09:28 Oxygen Delivery Method Room Air 04/09/24 09:28 BMI result Body Mass Index 32.4 Tobacco/Smoking Status: Tobacco use Status Tobacco use date assessed 04/09/24 04/09/24 09:27 Patient Tobacco Use Status Former Tobacco user 04/09/24 09:20 Tobacco use type Cigarette 04/09/24 09:20 e-Cigarette/Vaping Use Never Used 04/09/24 09:20 PHQ-9: PHQ-9 Score PHQ-9: Total score 5 04/09/24 09:34 Depression Screening Interpretation: Positive Thrive Assessment: Date of Thrive Assessment Date Thrive assessed 04/09/24 04/09/24 09:27 Currently or been in a relationship where the following occur: No concerns reported Const General: no acute distress, well developed, alert and awake Nutritional Appearance: well nourished Orientation/consciousness: patient oriented x3 HENMT Head: Yes normocephalic and Yes atraumatic Ears: hearing grossly normal bilaterally and TM's normal bilaterally General nose exam: Normal external nose present and Normal nares present Mouth: Normal oral and palatal mucosa present and moist mucous membranes Teeth and gingiva: dentition normal Throat: Yes posterior oropharynx normal Eyes General: appearance normal, both eyes and all related structures Pupils: Equal, round and reactive pupils present and Pupil accommodation reflex normal EOM: EOMs intact bilaterally Neck Neck: Yes normal visual inspection, Yes no lymphadenopathy and Yes trachea midline Thyroid: Thyroid normal Carotids: no bruits Lymphatic: no lymphadenopathy noted Chest Chest palpation & inspection: normal inspection of the chest Resp Effort & Inspection: normal respiratory effort Auscultation: clear to auscultation bilaterally Cardio Rate: regular rate Rhythm: regular rhythm Heart sounds: S1 normal heart sound present, S2 normal heart sound present, no gallops, no murmurs and no rubs Bruits: no abdominal aortic bruits and no carotid bruits GI Palpation (GI): No Abdominal aortic bruit present, Soft to palpation, nontender, No hepatosplenomegaly present and No Rebound tenderness present Auscultation: normal bowel sounds General: Yes no CVA tenderness Back/Spine/Pelvis Back: no CVA tenderness Cervical Spine: cervical ROM normal and No Cervical spine tenderness Thoracic/Lumbar Spine: thoraco-lumbar ROM normal, No pain with thoraco-lumbar ROM, No thoracic spinal tenderness and No lumbar spinal tenderness Skin Lesions: no lesions Rashes: no rashes Trauma: no lacerations or abrasions Wounds: no wounds Nails: normal Neuro General: patient oriented x3 Cranial nerves: Yes Equal, round and reactive pupils present Cognition (Neuro): normal cognition Gait exam (Neuro): Normal gait present Motor exam (neuro): 5/5 motor strength present throughout Sensory Exam: No Sensory deficit (Neuro) Deep tendon reflexes (DTR's): Right patellar reflex intensity grade: 2+ and Left patellar reflex intensity grade: 2+ Extrem General: Yes normal to inspection and No edema Psych Appearance: grossly normal Affect: normal affect Attitude: cooperative Thought process: Normal thought process present Coding Level of Care Code Est Pt Level 4 (73024) Diagnoses Elevated LDL cholesterol level E78.00 Screening for prostate cancer Z12.5 Screening for colon cancer Z12.11 Knee pain M25.569 Change in hearing H91.90 Adult general medical exam Z00.00 Additional Codes PAVAN-7 Assessment Billing - PAVAN-7 Assessment Tool: PAVAN-7 Assessment 45094 ([id number]) PHQ-9 - 20068 - PHQ-9 Billing: Yes ([id number]) Assessment & Plan Assessment & Plan (1) Elevated LDL cholesterol level: Code(s): E78.00 - Pure hypercholesterolemia, unspecified Category: Medical Plan: Check?labs Will?follow-up?by?telemedicine (2) Screening for prostate cancer: Code(s): Z12.5 - Encounter for screening for malignant neoplasm of prostate Category: Medical Plan: Due?to?recheck?PSA-ordered (3) Screening for colon cancer: Code(s): Z12.11 - Encounter for screening for malignant neoplasm of colon Category: Medical Plan: Colonoscopy?last?year?and?recommended?5?year?follow-up Up-to-date (4) Knee pain: Code(s): M25.569 - Pain in unspecified knee Category: Medical Plan: Bilateral?knee?pain,?right?worse?than?left And?some?right?lower?extremity?weakness?likely?due?to?the?above Referred?for?physical?therapy.??If?not?improving?will?image?and?consider?referral?to?ortho (5) Change in hearing: Code(s): H91.90 - Unspecified hearing loss, unspecified ear Category: Medical Plan: Ordered?audiology?testing (6) Adult general medical exam: Code(s): Z00.00 - Encounter for general adult medical examination without abnormal findings Category: Medical Plan: 73-year-old?male?presents?for?an?extended?exam Encouraged?healthy?diet?and?exercise?as?tolerated Orders: Orders Comprehensive [place]. Panel Fast Today Z00.00 - Encounter for general adult medical examination without abnormal findings Lipid Panel Today Z00.00 - Encounter for general adult medical examination without abnormal findings Prostate Specific Antigen Scr Today Z12.5 - Encounter for screening for malignant neoplasm of prostate Microalbumin, Random (w Creat) Today I10 - Essential (primary) hypertension UA and rflx microscopic Today Z00.00 - Encounter for general adult medical examination without abnormal findings TSH reflex Free T4 Today Z00.00 - Encounter for general adult medical examination without abnormal findings PT Evaluation and Treatment Today M25.569 - Pain in unspecified knee, R29.898 - Other symptoms and signs involving the musculoskeletal system Complete Blood Count Auto Diff Today Z00.00 - Encounter for general adult medical examination without abnormal findings Referrals Audiology Referral H91.90 - Unspecified hearing loss, unspecified ear
[2024-04-09 09:28] VITALS: BP 100/60; PULSE 56; RESP 12; TEMP 36.6; O2SAT 97; BMI 32.4
== END 2024-04-09 09:57 | disposition home or self-care (01) ==
PROVIDERS: PCP Family Medicine; Visit Provider Family Medicine
DX: E78.00 Pure hypercholesterolemia, unspecified (principal); Z12.5 Encounter for screening for malignant neoplasm of prostate; Z12.11 Encounter for screening for malignant neoplasm of colon; M25.569 Pain in unspecified knee; H91.90 Unspecified hearing loss, unspecified ear; Z00.00 Encounter for general adult medical examination without abnormal findings

== ENCOUNTER → 2024-04-09 08:48 | Outpatient (BNVA) | payer MEDICARE, SELFPAY | PROVIDERS: PCP Family Medicine; Visit Provider Family Medicine | DX: E78.00 Pure hypercholesterolemia, unspecified (principal); H91.90 Unspecified hearing loss, unspecified ear; M25.561 Pain in right knee; M25.562 Pain in left knee | CPT/HCPCS: 96127; 99212 ==

== ENCOUNTER 2024-04-18 10:53 | Outpatient (REF) | payer MEDICARE, SELFPAY ==
[2024-04-18 14:13] LABS: MANUAL DIFF FLAG NO
[2024-04-18 14:18] LABS: Basophils Absolute Auto 0.1 X10*3/uL (0.0-0.2); Basophils Percent Auto 0.8 % (0-2); Eosinophils Absolute Auto 0.2 X10*3/uL (0.0-0.4); Eosinophils Percent Auto 3.1 % (0-4); Hematocrit 47.9 % (42.0-52.0); Hemoglobin 16.4 g/dl (14.0-18.0); Imm Gran Abs Auto 0.02 X10*3/uL (0.00-0.03); Imm Gran Pct Auto 0.3 % (0.0-0.4); Lymphocytes Percent Auto 32.1 % (20-40); Mean Corpuscular HGB Conc 34.2 g/dl (31.0-36.0); Mean Corpuscular Hemoglobin 33.6 pg (27.0-33.0); Mean Corpuscular Volume 98.2 fL (80.0-98.0); Mean Platelet Volume 10.1 fL (9.4-12.4); Monocytes Absolute Auto 0.5 X10*3/uL (0.1-1.2); Monocytes Percent Auto 8.4 % (2-11); Neutrophils Absolute Auto 3.4 x10*3/uL (2.0-8.3); Neutrophils Percent Auto 55.3 % (45-73); Platelet Count 207 X10*3/uL (160-400); Red Blood Count 4.88 X10*6/uL (4.60-5.80); Red Cell Distribution Width 13.2 % (11.0-16.0); White Blood Count 6.1 X10*3/uL (4.8-10.8)
[2024-04-18 14:44] LABS: Alanine Aminotransferase 23 U/L (0-40); Albumin Level 4.1 g/dL (3.5-5.0); Alkaline Phosphatase 71 U/L (39-117); Anion Gap 13 (12-20); Aspartate Amino Transferase 25 U/L (5-37); Bilirubin Total 0.8 mg/dL (0.0-1.0); Blood Urea Nitrogen 17 mg/dL (9-16); Calcium 9.6 mg/dL (8.4-10.2); Carbon Dioxide 29 mmol/L (22-29); Chloride 103 mmol/L (96-108); Cholesterol 197 mg/dL (<200); Estimated Glomerular Filt Rate 59; Glucose Fasting 94 mg/dL (60-99); HDL Cholesterol 48 mg/dL (>40); LDL Cholesterol Calculated 124 mg/dL (<100); Potassium 3.9 mmol/L (3.3-5.1); Sodium 141 mmol/L (135-145); Total Protein 6.8 g/dL (6.5-8.0); Triglycerides 125 mg/dL (<150)
[2024-04-18 14:52] LABS: Prostate Specific Antigen Scr 2.49 ng/mL (<0.05-4.0)
[2024-04-18 15:01] LABS: TSH reflex Free T4 2.72 uIU/mL (0.32-4.0)
== END 2024-04-18 10:54 | disposition home or self-care (01) ==
LOC: HO.WFDLDS 10:53
PROVIDERS: Visit Provider Family Medicine
DX: Z00.00 Encounter for general adult medical examination without abnormal findings (principal); Z12.5 Encounter for screening for malignant neoplasm of prostate
CPT/HCPCS: 36415; 80053; 80061; 84153; 84443; 85025

== ENCOUNTER 2024-04-19 10:55 | Outpatient (REF) | payer MEDICARE, SELFPAY ==
[2024-04-19 11:07] LABS: Appearance Urine Clear; Color Urine Yellow; Glucose Urine UA Negative (Negative); Leukocyte Esterase Urine Negative (Negative); Nitrite Urine Negative (Negative); Specific Gravity - Urine 1.025 (1.005-1.025); Urine Blood Negative (Negative); Urine Ketones Negative (Negative); Urine Protein Negative (Neg-Trace)
[2024-04-19 12:19] LABS: Creatinine Urine 173.36 mg/dL; Microalbum/Creatinine Ratio Ur 3.4 ug/mg cr (<30)
== END 2024-04-19 10:56 | disposition home or self-care (01) ==
LOC: HO.LNP 10:55
PROVIDERS: Visit Provider Family Medicine
DX: Z00.00 Encounter for general adult medical examination without abnormal findings (principal); I10 Essential (primary) hypertension
CPT/HCPCS: 81003; 82043; 82570

== ENCOUNTER 2024-05-14 15:29 | Outpatient (REF) | payer MEDICARE, SELFPAY | END 2024-05-14 15:30 | disposition home or self-care (01) | LOC: HO.SH 15:29 | PROVIDERS: Visit Provider Family Medicine | DX: Z01.118 Encounter for examination of ears and hearing with other abnormal findings (principal); H90.3 Sensorineural hearing loss, bilateral | CPT/HCPCS: 92557; 92567 ==

== ENCOUNTER 2024-10-29 09:49 | Outpatient (AMB) | payer MEDICARE, SELFPAY ==
[2024-10-29 10:02] VITALS: BP 110/60; PULSE 74; RESP 14; O2SAT 95; BMI 32.9
--- NOTE | 2024-10-29 10:02 | A.OFFPC_ITS ---
Vital Signs 10/29/24 10:02 Height 6 ft Weight 242 lb 8 oz BMI 32.9 BP 110/60 Blood Pressure Location Rt brachial Position Sitting Respiration 14 Pulse 74 Pulse Source Pulse Oximeter Pulse Oximetry (%) 95 Oxygen Delivery Method Room Air Intake Visit Reasons: Lab review Intake Note: patient is scheduled for lab review Senior Marketing Associate Required: No Allergies No Known Allergies Allergy (Verified 10/29/24 10:07) Medication List - Last Reconciled 10/29/24 by Pedro Deluca MD acetaminophen 500 mg PO QID PRN melatonin 10 mg PO BEDTIME PRN methylcellulose (laxative) (Citrucel Sugar Free oral powder) 2 grams PO DAILY PRN Tobacco use date assessed: 04/09/24 Dental Screening Dental Screen Date: 04/09/24 HPI Lab review HPI Details 74 y/o male presents to review labs. Had ordered audiology testing for change in hearing. No recent labs to review. Last labs drawn 04/18/24. Triglycerides 125. TC 197. LDL 124. HDL 48. PFSH Medical History Hernia Surgical History History of foot surgery Hx of skin graft Hx of prostatectomy Hx of colonoscopy Hx of hernia repair Social History Housing: Apartment Patient Tobacco Use Status: Former Tobacco user Tobacco use type: Cigarette Cigarette Packs Per Day: 1 e-Cigarette/Vaping Use: Never Used Second Hand Smoke Exposure: No service: No Current occupational status: retired Current occupational exposures/hazards: No Cognitive needs: No Hearing needs: No Vision needs: No Questionnaire Thrive Questionnaire Date Thrive assessed: 04/09/24 PAVAN-7 AMB Questionnaire PAVAN-7 Date PAVAN - 7 assessed: 04/09/24 Source: Developed by Drs. Ulises Pennington, Birdie Becerra, Saleem Seals and colleagues, with an educational alexandro from [employer]. Review of Systems Const Denies chills, Denies fatigue, Denies fever(s), Denies headache(s) and Denies weakness ENT Denies dizziness and Denies headache(s) Card Denies dyspnea Resp Denies cough, Denies dyspnea, Denies wheezing and Denies other (shortness of breath) Musc Denies numbness and Denies tingling Neuro Denies dizziness, Denies headache(s), Denies numbness, Denies tingling and Denies weakness Psych Denies anxiety and Denies depression Endo Denies fatigue Aller/Immun Denies wheezing Physical exam (Primary Care) Vital Signs: Last Vital Signs Pulse 74 10/29/24 10:02 Resp 14 10/29/24 10:02 BP 110/60 10/29/24 10:02 Pulse Ox 95 10/29/24 10:02 Oxygen Delivery Method Room Air 10/29/24 10:02 BMI result Body Mass Index 32.9 Tobacco/Smoking Status: Tobacco use Status Tobacco use date assessed 04/09/24 10/29/24 10:08 Patient Tobacco Use Status Former Tobacco user 10/29/24 10:08 Tobacco use type Cigarette 10/29/24 10:08 e-Cigarette/Vaping Use Never Used 10/29/24 10:08 Thrive Assessment: Date of Thrive Assessment Date Thrive assessed 04/09/24 10/29/24 10:08 Const General: well developed; No acute distress Nutritional Appearance: well nourished Orientation/consciousness: patient oriented x3 HENMT Head: Yes normocephalic and Yes atraumatic Eyes General: appearance normal, both eyes and all related structures Pupils: Equal, round and reactive pupils present EOM: EOMs intact bilaterally Resp Effort & Inspection: normal respiratory effort Auscultation: clear to auscultation bilaterally Cardio Rate: regular rate Rhythm: regular rhythm Heart sounds: S1 normal heart sound present, S2 normal heart sound present, no gallops, no murmurs and no rubs Neuro General: patient oriented x3 and gait normal Cranial nerves: Yes Equal, round and reactive pupils present Psych Affect: normal affect Coding Level of Care Code Est Pt Level 4 (82686) Diagnoses Change in hearing H91.90 Elevated LDL cholesterol level E78.00 Elevated fasting glucose R73.01 Knee pain M25.569 Assessment & Plan Assessment & Plan (1) Change in hearing: Code(s): H91.90 - Unspecified hearing loss, unspecified ear Category: Medical Plan: Moderately?severe?sensorineural?hearing?loss?at?higher?frequencies. He?declines?amplification?at?this?time He?will?let?me?know?if?worsening?or?changing (2) Elevated LDL cholesterol level: Code(s): E78.00 - Pure hypercholesterolemia, unspecified Category: Medical Plan: Encouraged?a?diet?lower?in?saturated?fats?and?cholesterol (3) Elevated fasting glucose: Code(s): R73.01 - Impaired fasting glucose Category: Medical Plan: Encouraged?diet?lower?in?sugars?and?starches (4) Knee pain: Code(s): M25.569 - Pain in unspecified knee Category: Medical Plan: Ongoing?intermittent?knee?pain Had?ordered?physical?therapy?but?patient?says?he?was?not?contacted Will?ask?the?office?to?check?the?status?of?this Orders: Orders Lipid Panel Today Z00.00 - Encounter for general adult medical examination without abnormal findings Comprehensive [place]. Panel Fast Today Z00.00 - Encounter for general adult medical examination without abnormal findings Microalbumin, Random (w Creat) Today I10 - Essential (primary) hypertension UA CC w/rflx Micro + Cult Today Z00.00 - Encounter for general adult medical examination without abnormal findings
== END 2024-10-29 16:33 | disposition home or self-care (01) ==
LOC: HO.HMCFM 09:50
PROVIDERS: PCP Family Medicine; Visit Provider Family Medicine
DX: H91.90 Unspecified hearing loss, unspecified ear (principal); E78.00 Pure hypercholesterolemia, unspecified; R73.01 Impaired fasting glucose; M25.569 Pain in unspecified knee

== ENCOUNTER → 2024-10-29 09:49 | Outpatient (BNVA) | payer MEDICARE, SELFPAY | PROVIDERS: PCP Family Medicine; Visit Provider Family Medicine | DX: E78.00 Pure hypercholesterolemia, unspecified (principal); R73.01 Impaired fasting glucose; M25.561 Pain in right knee; M25.562 Pain in left knee; H91.93 Unspecified hearing loss, bilateral | CPT/HCPCS: 99212 ==

== ENCOUNTER 2025-04-14 09:07 | Outpatient (REF) | payer MEDICARE, SELFPAY ==
[2025-04-14 11:44] LABS: Appearance Urine Clear; Glucose Urine UA Negative (Negative); PH 7.0 (5.0-9.0); Specific Gravity - Urine 1.025 (1.005-1.025)
[2025-04-14 12:27] LABS: Microalbum/Creatinine Ratio Ur 5.8 ug/mg cr (<30)
[2025-04-14 12:38] LABS: Alanine Aminotransferase 23 U/L (0-40); Albumin Level 4.2 g/dL (3.5-5.0); Alkaline Phosphatase 56 U/L (39-117); Anion Gap 13 (12-20); Aspartate Amino Transferase 22 U/L (5-37); Blood Urea Nitrogen 19 mg/dL (9-16); Calcium 9.3 mg/dL (8.4-10.2); Carbon Dioxide 26 mmol/L (22-29); Chloride 106 mmol/L (96-108); Cholesterol 187 mg/dL (<200); Estimated Glomerular Filt Rate 56; HDL Cholesterol 44 mg/dL (>40); Potassium 4.2 mmol/L (3.3-5.1); Sodium 141 mmol/L (135-145); Total Protein 6.8 g/dL (6.5-8.0); Triglycerides 98 mg/dL (<150)
== END 2025-04-14 09:08 | disposition home or self-care (01) ==
LOC: HO.WFDLDS 09:07
PROVIDERS: Visit Provider Family Medicine
DX: Z00.00 Encounter for general adult medical examination without abnormal findings (principal); I10 Essential (primary) hypertension
CPT/HCPCS: 36415; 80053; 80061; 81003; 82043; 82570